=== PATIENT | male | born 1990 | race Caucasian/White ===

== ENCOUNTER 2018-10-10 17:19 | Emergency (ER) | payer OTHER ==
[~2018-10-10] VITALS: Wt 60.8 kg
[2018-10-10 17:23] VITALS: BP 164/94; PULSE 62; RESP 20
== END 2018-10-10 19:28 | disposition left against medical advice (07) ==
LOC: FTE 17:19
DX: Z53.21 Procedure and treatment not carried out due to patient leaving prior to being seen by health care provider (principal)